=== PATIENT | female | born 1965 | race Caucasian/White ===

== ENCOUNTER 2019-07-18 00:54 | Emergency (ER) | payer OTHER, SELFPAY ==
[2019-07-18 00:54] VITALS: BP 143/79; PULSE 96; RESP 18; TEMP 36.4; O2SAT 94
--- NOTE | 2019-07-18 01:40 | PC.NURSE ---
pt asked if she could have water. stated no. pt states then i'm going to get out of bed when you leave the room and get it myself. pt told she isn't able to get out of bed due to her being intoxicated. pt states well what happens when i choke and ? i have cotton mouth from smoking weed and drinking whiskey. this rn informed her she isn't able to get out of bed. paedodontist sitting in room w/ pt at this time.
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
[2019-07-18] MEDS: TETANUS,DIPHTHERIA,AC PERTUSSIS ADULT (0.5 ML) BOOSTRIX (02:09)
--- NOTE | 2019-07-18 02:11 | PC.NURSE ---
pt refusing to stay in bed. registered medical transcriptionist still in room with pt.
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
[2019-07-18 03:22] VITALS: BP 138/88; PULSE 90; RESP 18; O2SAT 99
[2019-07-18 04:39] VITALS: BP 137/77; PULSE 78; RESP 18; O2SAT 100
--- NOTE | 2019-07-18 05:52 | PC.NURSE ---
pt refusing antibiotic at this time. she states when is doctor going to come see me? i havent even fucking seen her. this rn states that doctor came in to see her when she arrived at the facility and is currently busy. pt states she is going to call a taxi to leave. notified.
== END 2019-07-18 06:05 | disposition left against medical advice (07) ==
LOC: ANHED 01:29
PROVIDERS: Emergency Provider General Practice
DX: S01.311A Laceration without foreign body of right ear, initial encounter (principal); E11.9 Type 2 diabetes mellitus without complications; I10 Essential (primary) hypertension; X58.XXXA Exposure to other specified factors, initial encounter; Z23 Encounter for immunization
CPT/HCPCS: 90471; 90715; 99282

== ENCOUNTER 2019-10-14 18:49 | Emergency (ER) | payer OTHER, SELFPAY ==
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
[2019-10-14 19:29] VITALS: BP 155/99; PULSE 116; RESP 18; TEMP 36.9; O2SAT 93
[2019-10-14 19:49] LABS: Basophils Absolute Auto 0.1 K/mm3 (0.0-0.1); Basophils Percent Auto 0.7 % (0.2-1.2); Eosinophils Absolute Auto 0.1 K/mm3 (0-0.3); Eosinophils Percent Auto 0.8 % (0-4.4); Hematocrit 38.9 % (37.0-47.0); Hemoglobin 13.1 g/dL (12.0-15.0); Immature Granulocyte Absolute 0.01 K/mm3 (0.00-0.031); Immature Granulocyte Percent A 0.1 % (0-0.5); Lymphocytes Absolute Auto 2.68 K/mm3 (0.9-3.2); Lymphocytes Percent Auto 35.4 % (18.3-44.2); Mean Corpuscular HGB Conc 33.7 g/dl (32-36); Mean Corpuscular Volume 89.2 fl (80-100); Mean Platelet Volume 9.8 fl (7.4-10.4); Monocytes Absolute Auto 0.5 K/mm3 (0.1-0.6); Monocytes Percent Auto 6.1 % (2.6-8.5); Neutrophils Absolute Auto 4.3 K/mm3 (1.3-6.7); Neutrophils Percent Auto 56.9 % (45.5-73.1); Platelet Count Result 382 k/mm3 (150-375); Red Blood Count 4.36 M/mm3 (4.2-5.4); Red Cell Distribution Width 13.6 % (11.5-14.5); White Blood Count 7.6 K/mm3 (4.5-10.0)
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
[2019-10-14 20:02] LABS: Alanine Aminotransferase 27 U/L (4-35); Albumin Level 4.7 g/dL (3.5-5.1); Alkaline Phosphatase 101 U/L (38-126); Aspartate Amino Transferase 37 U/L (14-36); Bilirubin,Total 0.2 mg/dL (0.2-1.3); Blood Urea Nitrogen 8 mg/dL (7-17); Calcium 8.8 mg/dL (8.4-10.2); Carbon Dioxide 25 mmol/L (22-30); Chloride 101 mmol/L (98-107); Estimated CRCL calculation 112 ml/min; Estimated Glomerular Filt Rate > 60; Glucose 310 mg/dL (65-105); Potassium 4.1 mmol/L (3.4-5.0); Sodium 141 mmol/L (137-145)
[2019-10-14 20:03] LABS: Ethanol 241 mg/dL (<10)
[2019-10-14 20:18] LABS: Add Urine Microscopic? YES; Appearance Urine Cloudy (Clear); Bacteria Urine Trace /hpf; Bilirubin Urine Negative (Negative); Blood Urine 1+ (Negative); Color Urine Yellow (Yellow); Glucose Urine UA 3+ mg/dL (Negative); Ketones Urine Negative (Negative); Leukocyte Esterase Ur Trace LEU/UL (Negative); Mucus Urine Rare /lpf; Nitrate Urine Negative (Negative); Protein Urine 1+ mg/dL (Negative); RBC Urine 0-2 /hpf (0-2); Squamous Epithelial Cell Urine Many /hpf (Few); Urobilinogen Urine Negative mg/dL (<2.0)
[2019-10-14 20:26] LABS: Amphetamine Screen Urine Negative (Negative); Barbiturate Screen Urine Negative (Negative); Benzodiazepines Screen Urine Negative (Negative); Cannabinoid Screen Urine Negative (Negative); Cocaine Screen Urine Negative (Negative); Methadone Screen Urine Negative (Negative); Opiate Screen Urine Negative (Negative); Phencyclidine Screen Urine Negative (Negative)
--- NOTE | 2019-10-14 23:30 | PC.NURSE ---
Assumed care of pt at this time. Report from EMIL Bermeo
--- NOTE | 2019-10-14 23:40 | PC.NURSE ---
Pt requesting pain medications. ERP notified
[2019-10-14] MEDS: ACETAMINOPHEN 325 MG TABLET 650 MG PO (23:42)
[2019-10-14 23:48] VITALS: BP 164/98; PULSE 100; TEMP 37; O2SAT 96
[2019-10-15] MEDS: ONDANSETRON HCL ODT 4 MG TABLET PO (01:21)
[2019-10-15 05:25] LABS: Ethanol < 10 mg/dL (<10)
[2019-10-15 06:11] VITALS: BP 194/103; PULSE 94; RESP 17; TEMP 36.7; O2SAT 99
--- NOTE | 2019-10-15 06:15 | PC.NURSE ---
Courtney from crisis here to evaluate patient.
[2019-10-15] MEDS: PROMETHAZINE HCL 25 MG/ML AMPUL IM (06:37)
--- NOTE | 2019-10-15 06:39 | PC.NURSE ---
pt requesting pain medication and pain medication
--- NOTE | 2019-10-15 08:18 | PC.NURSE ---
0800-Breakfast delivered. 0812-introduced self to patient. Patient standing in the middle of room. Cooperative, reports to this nurse reason for emergency room visit and still has thoughts that neighbors are after her .
--- NOTE | 2019-10-15 09:20 | PC.NURSE ---
Information faxed to [facility] in [facility] and [facility] in [place]
--- NOTE | 2019-10-15 09:55 | PC.NURSE ---
Info faxed to [facility]
[2019-10-15 11:17] VITALS: BP 183/108; PULSE 103; RESP 17; TEMP 36.9; O2SAT 98
--- NOTE | 2019-10-15 11:27 | ECG_ITS ---
Measurements Intervals [place] [employer] Rate: 92 P: 53 NV: 202 QRS: 1 QRSD: 97 T: 20 QT: 396 QTc: 491 Interpretive Statements SINUS RHYTHM DELAYED PRECORDIAL R/S TRANSITION BORDERLINE T WAVE ABNORMALITY- ANTERIOR LEADS BORDERLINE ECG Electronically Signed On 10-15-2019 13:08:33 CDT by John Swartz D.O.
--- NOTE | 2019-10-15 12:14 | PC.NURSE ---
[facility] called with room number and number for report. Patient and MD aware
[2019-10-15] MEDS: amLODIPine BESYLATE 5 MG TABLET 10 MG PO (12:40)
[2019-10-15 13:16] VITALS: BP 159/94; PULSE 89; RESP 20; TEMP 36.8; O2SAT 97
[2019-10-15 14:36] LABS: SARS-CoV-2 RNA PCR Negative
[2019-10-15 15:36] VITALS: BP 157/82; PULSE 89; RESP 18; O2SAT 98
== END 2019-10-15 15:46 ==
PROVIDERS: Emergency Medicine; Emergency Provider Emergency Medicine
DX: F32.9 Major depressive disorder, single episode, unspecified (principal); R45.851 Suicidal ideations; E11.9 Type 2 diabetes mellitus without complications; I10 Essential (primary) hypertension; Z79.84 Long term (current) use of oral hypoglycemic drugs; R94.31 Abnormal electrocardiogram [ECG] [EKG]; Z11.59 Encounter for screening for other viral diseases
CPT/HCPCS: 36415; 80053; 80307; 81001; 84443; 85025; 87635; 93005; 96372; 99285; A9270; C9803; J2550; U0003

== ENCOUNTER 2020-02-09 12:57 | Outpatient (CLI) | payer OTHER, SELFPAY ==
--- NOTE | ~2020-02-09 | MM_ITS ---
EXAMINATION: MM screening loretta BI w flor HISTORY: Screening mammogram TECHNIQUE: Craniocaudal and mediolateral oblique 3-D tomosynthesis images were obtained and synthetic 2-D images were generated. CAD analysis was submitted and interpreted. COMPARISON: No prior mammogram is available for comparison at this institution. BREAST PARENCHYMAL COMPOSITION: There are scattered areas of fibroglandular density. FINDINGS: Scattered benign-appearing calcifications are present. There is no evidence of suspicious m ass, calcification, or architectural distortion to suggest malignancy in either breast. IMPRESSION: 1. No mammographic evidence of malignancy. 2. Recommend routine screening mammography in one year. BI-RADS Category 2: Benign finding(s). Reviewed, dictated and finalized at location A. NT ACCOUNT ASSISTANT
== END 2020-02-09 12:58 | disposition home or self-care (01) ==
LOC: ANHIMG 13:01
PROVIDERS: PCP Family Medicine; Visit Provider Nurse Practitioner
DX: Z12.31 Encounter for screening mammogram for malignant neoplasm of breast (principal)
CPT/HCPCS: 77063; 77067

== ENCOUNTER 2020-07-13 09:14 | Emergency (ER) | payer OTHER, SELFPAY ==
--- NOTE | ~2020-07-13 | XR_ITS ---
EXAMINATION: XR foot LT min 3V DATE: 07/13/2020 09:49 INDICATION: Left foot wound and erythema TECHNIQUE: Dorsoplantar, lateral, and oblique views of the left foot were obtained. COMPARISON: None. FINDINGS: There is soft tissue swelling of the fourth toe. No acute associated underlying osseous abn ormality is seen. 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 There is advan kelly osteoarthritis in the midfoot and at the metatarsophalangeal joints. IMPRESSION: 1. Soft tissue swelling of the fourth toe without acute underlying osseous abnormality. Reviewed, dictated and finalized at location B. IMPRESSION: 1. Soft tissue swelling of the fourth toe without acute underlying osseous abno rmality.
[2020-07-13 09:15] VITALS: BP 164/89; PULSE 85; RESP 18; TEMP 36.7; O2SAT 100
[2020-07-13 09:21] LABS: Glucose Point of Care 243 (65-105)
--- NOTE | 2020-07-13 09:21 | PC.NURSE ---
Blood glucose was 243 at 09:20
--- NOTE | 2020-07-13 09:32 | ED.LOWEXIN ---
HPI - Extremity Injury (Lower) General Chief Complaint: Extremity Injury, Lower <Emma Woodson PA-C - Last Filed: 07/13/20 11:35> Stated Complaint: foot wound <TERELL Cutler Last Filed: 07/13/20 11:35> Time Seen by Provider: 07/13/20 09:18 <TERELL Cutler Last Filed: 07/13/20 11:35> Source: patient <TERELL Cutler Last Filed: 07/13/20 11:35> Mode of arrival: EMS <TERELL Cutler Last Filed: 07/13/20 11:35> Limitations: no limitations <TERELL Cutler Last Filed: 07/13/20 11:35> History of Present Illness HPI Narrative: This is a 55-year-old female that presents the emergency department for left foot wound x3 days. Reports a wound to the left fourth toe. Reports she started to note some redness and swelling around the area that is spreading. Also reports a bruise to the top of the foot. Reports history of diabetes and Charcot foot on that side for which she has had to have surgery in the past. This was done in a different state. Reports history of peripheral neuropathy from her diabetes. Reports that she thinks that shoes she has been wearing because the wound to the top of her toe. Denies fever or decreased range of motion. <TERELL Cutler Last Filed: 07/13/20 11:35> Related Data Home Medications: Home Medications Medication Instructions Recorded Confirmed Shana-Hanover 07/13/20 Daily Multivitamin 07/13/20 Tums 07/13/20 <TERELL Cutler Last Filed: 07/13/20 11:35> Allergies/Adverse Reactions: Allergies Allergy/AdvReac Type Severity Reaction Status Date / Time No Known Allergies Allergy Verified 07/13/20 09:22 <TERELL Cutler Last Filed: 07/13/20 11:35> Review of Systems Review of Systems: Narrative: CONSTITUTIONAL: Denies fever SKIN: Reports redness MUSCULOSKELETAL: Reports joint pain, and myalgia. NEUROLOGIC: Reports numbness <Emma Woodson PA-C - Last Filed: 07/13/20 11:35> All systems reviewed & are unremarkable except as noted in HPI and below <Emma Woodson PA-C - Last Filed: 07/13/20 11:35> [facility] Past Medical History Medical History: Medical History (Updated 07/13/20 @ 11:35 by Emma Woodson PA-C) Anxiety Bipolar 1 disorder Depression Diabetes mellitus Hypertension <Emma Woodson PA-C - Last Filed: 07/13/20 11:35> Surgical History Surgical History: Surgical History (Updated 07/18/19 @ 01:50 by Brittny Paula MD) H/O tubal ligation <Emma Woodson PA-C - Last Filed: 07/13/20 11:35> Social History Social History: Social History (Updated 07/13/20 @ 09:34 by Emma Woodson PA-C) Smoking status: Current every day smoker Tobacco type: cigars Alcohol intake: current Gender identity (if verbalized by the patient): Female <Emma Woodson PA-C - Last Filed: 07/13/20 11:35> Exam Narrative: Exam Narrative: GENERAL: Well-appearing, well-nourished, and in no acute distress. HEAD: Normocephalic, atraumatic. EYES: EOMI. EXTREMITIES: Normal range of motion. Left fourth toe dorsal surface with small (1cm) ulcer, mild surrounding erythema and edema. Dorsal surface of foot also with small bruise. Normal DP pulses. Diminished sensation SKIN: Warm, dry, no rash. NEURO: No focal deficits. Alert and oriented x3. PSYCH: Normal mood and affect <Emma Woodson PA-C - Last Filed: 07/13/20 11:35> Course Consultations Consultation #1: Spoke with Dr. Escobar about patient work-up. Would like patient started on glimepiride for diabetes and and Ceftin for cellulitis. <Emma Woodson PA-C - Last Filed: 07/13/20 11:35> Date: 07/13/20 <Emma Woodson PA-C - Last Filed: 07/13/20 11:35> Time: 11:29 <Emma Woodson PA-C - Last Filed: 07/13/20 11:35> Vital Signs Vital signs: Vital Signs Temperature 98.1 F 07/13/20 09:15 Pulse Rate 85 07/13/20 09:15 Respiratory Rate 18 07/13/20
[2020-07-13 09:40] LABS: Basophils Percent Auto 0.5 % (0.2-1.2); Eosinophils Absolute Auto 0.1 K/mm3 (0-0.3); Eosinophils Percent Auto 1.7 % (0-4.4); Hematocrit 39.6 % (37.0-47.0); Hemoglobin 12.9 g/dL (12.0-15.0); Immature Granulocyte Absolute 0.02 K/mm3 (0.00-0.031); Immature Granulocyte Percent A 0.3 % (0-0.5); Lymphocytes Absolute Auto 1.69 K/mm3 (0.9-3.2); Lymphocytes Percent Auto 29.4 % (18.3-44.2); Mean Corpuscular HGB Conc 32.6 g/dl (32-36); Mean Corpuscular Hemoglobin 30.4 pg (26-34); Mean Corpuscular Volume 93.2 fl (80-100); Mean Platelet Volume 10.8 fl (7.4-10.4); Monocytes Absolute Auto 0.5 K/mm3 (0.1-0.6); Monocytes Percent Auto 8.5 % (2.6-8.5); Neutrophils Absolute Auto 3.4 K/mm3 (1.3-6.7); Neutrophils Percent Auto 59.6 % (45.5-73.1); Platelet Count Result 254 k/mm3 (150-375); Red Blood Count 4.25 M/mm3 (4.2-5.4); Red Cell Distribution Width 14.7 % (11.5-14.5); White Blood Count 5.8 K/mm3 (4.5-10.0)
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
[2020-07-13 09:46] VITALS: BP 154/95; PULSE 85; RESP 21; O2SAT 96
[2020-07-13 09:52] LABS: Anion Gap 6 mmol/L (8-16); Blood Urea Nitrogen 10 mg/dL (7-17); CRP 3.3 mg/dL (<1.0); Calcium 9.5 mg/dL (8.4-10.2); Carbon Dioxide 30 mmol/L (22-30); Chloride 102 mmol/L (98-107); Estimated CRCL calculation 92 ml/min; Estimated Glomerular Filt Rate > 60; Glucose 246 mg/dL (65-105); Potassium 4.2 mmol/L (3.4-5.0); Sodium 138 mmol/L (137-145)
[2020-07-13 10:31] VITALS: BP 146/89; PULSE 84; RESP 19; O2SAT 94
[2020-07-13 10:42] LABS: Erythrocyte Sedimentation Rate 115 mm/hr (0-20)
[2020-07-13 10:56] LABS: Hemoglobin A1C 10.7 % (<5.7)
--- NOTE | 2020-07-13 11:16 | PC.NURSE ---
lunch tray given to patient.
[2020-07-13] MEDS: CEFUROXIME AXETIL 250 MG TABLET 500 MG PO (11:44)
== END 2020-07-13 12:09 | disposition home or self-care (01) ==
PROVIDERS: Physician Assistant; Emergency Provider General Practice; PCP Family Medicine
DX: L03.116 Cellulitis of left lower limb (principal); E11.621 Type 2 diabetes mellitus with foot ulcer; E11.42 Type 2 diabetes mellitus with diabetic polyneuropathy; I10 Essential (primary) hypertension; F17.290 Nicotine dependence, other tobacco product, uncomplicated
CPT/HCPCS: 36415; 73630; 80048; 82948; 83036; 85025; 85652; 86140; 99283; A9270

== ENCOUNTER 2020-07-31 05:49 | Emergency (ER) | payer SELFPAY ==
--- NOTE | ~2020-07-31 | XR_ITS ---
EXAMINATION: XR foot LT min 3V DATE: 07/31/2020 06:32 INDICATION: Right foot pain TECHNIQUE: Dorsoplantar, lateral, and 2 oblique views of the right foot were obtained. COMPARISON: 07/13/2020 FINDINGS: There is soft tissue swelling of the first toe. There appears to be a soft tissue ulceratio n at the tip of the first toe at the plantar aspect. No definite acute underlying osseous abnormality is identified. 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 IMPRESSION: 1. Apparent ulceration at the plantar tip of the first toe with soft tissue swelling of the first toe , no definite underlying osseous abnormality. Reviewed, dictated and finalized at location A. IMPRESSION: 1. Apparent ulceration at the plantar tip of the first toe with soft tissue swe lling of the first toe, no definite underlying osseous abnormality.
[2020-07-31 05:50] VITALS: BP 161/83; PULSE 98; RESP 17; TEMP 36.4; O2SAT 100
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
--- NOTE | 2020-07-31 06:36 | PC.NURSE ---
Pt indicates fear that people are poisoning her food.
[2020-07-31 06:45] LABS: Basophils Absolute Auto 0.1 K/mm3 (0.0-0.1); Basophils Percent Auto 0.5 % (0.2-1.2); Eosinophils Absolute Auto 0.1 K/mm3 (0-0.3); Eosinophils Percent Auto 0.4 % (0-4.4); Hematocrit 41.9 % (37.0-47.0); Hemoglobin 13.5 g/dL (12.0-15.0); Immature Granulocyte Absolute 0.04 K/mm3 (0.00-0.031); Immature Granulocyte Percent A 0.3 % (0-0.5); Lymphocytes Absolute Auto 1.45 K/mm3 (0.9-3.2); Lymphocytes Percent Auto 10.9 % (18.3-44.2); Mean Corpuscular HGB Conc 32.2 g/dl (32-36); Mean Corpuscular Hemoglobin 29.7 pg (26-34); Mean Corpuscular Volume 92.1 fl (80-100); Mean Platelet Volume 10.5 fl (7.4-10.4); Monocytes Absolute Auto 0.7 K/mm3 (0.1-0.6); Monocytes Percent Auto 5.4 % (2.6-8.5); Neutrophils Absolute Auto 10.9 K/mm3 (1.3-6.7); Neutrophils Percent Auto 82.5 % (45.5-73.1); Platelet Count Result 310 k/mm3 (150-375); Red Blood Count 4.55 M/mm3 (4.2-5.4); Red Cell Distribution Width 13.6 % (11.5-14.5); White Blood Count 13.3 K/mm3 (4.5-10.0)
[2020-07-31 06:55] LABS: Alanine Aminotransferase 17 U/L (4-35); Albumin Level 4.7 g/dL (3.5-5.1); Alkaline Phosphatase 104 U/L (38-126); Anion Gap 11 mmol/L (8-16); Aspartate Amino Transferase 21 U/L (14-36); Bilirubin,Total 0.8 mg/dL (0.2-1.3); Blood Urea Nitrogen 6 mg/dL (7-17); Carbon Dioxide 26 mmol/L (22-30); Chloride 101 mmol/L (98-107); Estimated Glomerular Filt Rate > 60; Ethanol < 10 mg/dL (<10); Glucose 297 mg/dL (65-105); Potassium 3.9 mmol/L (3.4-5.0); Sodium 138 mmol/L (137-145)
[2020-07-31 06:57] LABS: Add Urine Microscopic? YES; Appearance Urine Cloudy (Clear); Bacteria Urine Trace /hpf; Bilirubin Urine Negative (Negative); Blood Urine Negative (Negative); Color Urine Yellow (Yellow); Glucose Urine UA 3+ mg/dL (Negative); Ketones Urine 1+ mg/dL (Negative); Leukocyte Esterase Ur Trace LEU/UL (Negative); Mucus Urine Rare /lpf; Nitrate Urine Negative (Negative); Protein Urine Negative (Negative); RBC Urine 0-2 /hpf (0-2); Squamous Epithelial Cell Urine Moderate /hpf (Few); Urobilinogen Urine Negative mg/dL (<2.0); WBC Urine 16-20 /hpf
[2020-07-31 07:10] LABS: Amphetamine Screen Urine Negative (Negative); Barbiturate Screen Urine Negative (Negative); Benzodiazepines Screen Urine Negative (Negative); Cannabinoid Screen Urine Negative (Negative); Cocaine Screen Urine Negative (Negative); Methadone Screen Urine Negative (Negative); Opiate Screen Urine Negative (Negative); Phencyclidine Screen Urine Negative (Negative)
[2020-07-31 07:25] LABS: Thyroid Stimulating Hormone 0.891 uIU/mL (0.465-4.680)
--- NOTE | 2020-07-31 07:29 | PC.NURSE ---
Report received from EMIL Redmond. Pt resting with eyes closed. Introduced self and asked if can get anything for the patient, states just turn the lights out please . Denies other needs at present. Awaiting disposition.
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
--- NOTE | 2020-07-31 08:58 | PC.NURSE ---
Planning to discharge, pt reports to Dr. Humphrey that she doesn't have a ride to her bank, or the bus to get to her bank. Care coordination notified. Ordered breakfast tray for the patient as well.
--- NOTE | 2020-07-31 09:24 | PC.NURSE ---
Pt given breakfast tray. Continue to await care coordination.
--- NOTE | 2020-07-31 09:30 | PC.NURSE ---
Care coordination at bedside.
[2020-07-31] MEDS: MAG HYDROX/AL HYDROX/SIMETH 30 ML UDC (09:40)
--- NOTE | 2020-07-31 09:40 | PC.NURSE ---
Pt given mylanta po per her request for queasy stomach after eating that breakfast. I'm so nervous about how I'm going to get everything done . Discussed wound care with patient and extra supplies given.
--- NOTE | 2020-07-31 09:55 | PCCCNOTE ---
Patient requested cab voucher to get her to a bank so that she is able to pick up and delivery driver her prescriptions. Provided cab voucher to [employer] in [place]. Also provided an [facility] ([facility]). Pt has plan for obtaining her medications, food, housing because of access to her bank. Cab ordered. Verified that patient has two prescriptions waiting for her at [facility] and that she is able to have her prescriptions transferred to the [place] location that is near the bank she has requested transport to. Addresses to the [facility], [facility] and [facility] provided to patient. Patient states she is going to check into a hotel and has the means to do so.
== END 2020-07-31 09:47 | disposition home or self-care (01) ==
PROVIDERS: Emergency Medicine; Emergency Provider Emergency Medicine; PCP Family Medicine
DX: F22 Delusional disorders (principal); L97.529 Non-pressure chronic ulcer of other part of left foot with unspecified severity; E11.621 Type 2 diabetes mellitus with foot ulcer; I10 Essential (primary) hypertension; F31.9 Bipolar disorder, unspecified; F17.290 Nicotine dependence, other tobacco product, uncomplicated
CPT/HCPCS: 36415; 73630; 80053; 80307; 81001; 84443; 85025; 87086; 99285; A9270